=== PATIENT | male | born 1950 | race Hispanic/Latino ===

== ENCOUNTER 2021-11-06 10:18 | Emergency (ER) | payer OTHER, BC ==
[~2021-11-06] VITALS: Ht 152.4 cm; Wt 64.9 kg
--- OUTSIDE RECORDS SUMMARY | 2021-11-06 12:58 | XMS ---
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 Lauro has no Care Guidelines for this patient. Yadira VISIT COUNT (12 MO.) 1 [facility] TOTAL 2 NOTE: Visits indicate total known visits. ED/C VISIT TRACKING (12 MO.) [facility]21 10[facility] [place] [facility] COMPLAINT: - R CALF PAIN 10/28/2021 16:37 [facility] [place] TYPE: Emergency COMPLAINT: - ANIMAL BITE ON L LEG DIAGNOSES: - ANIMAL BITE ON L LEG INPATIENT VISIT TRACKING (12 MO.) No inpatient visits to display in this time frame [email or web address]
== END 2021-11-06 12:57 | disposition home or self-care (01) ==
LOC: ED 10:18
DX: M66.0 Rupture of popliteal cyst (principal)
CPT/HCPCS: 93971; 99283-25